=== PATIENT | male | born 1985 | race Caucasian/White ===

== ENCOUNTER 2016-07-15 13:31 | Emergency (ER) | payer MEDICAID ==
[~2016-07-15] VITALS: Wt 88.0 kg
--- NOTE | 2016-07-15 14:35 | EN ---
Date/Time of Note Date/Time of Note DATE: 07/15/16 TIME: 14:34 ER Progress Note This is a 31-year-old male presents to the ER with hearing loss. Patient was seen at [facility] yesterday and was given a referral for ENT for next week, patient however very concerned that he is unable to hear. He has not received any sort of imaging to rule out mastoiditis. Patient will be sent over to the fast track for further testing. LUNA HECTOR Jul 15, 2016 14:35
--- NOTE | 2016-07-15 15:19 | ERA ---
ER Documentation Chief Complaint Date/Time DATE: 07/15/16 TIME: 15:17 Chief Complaint BIALTERAL EAR PRESSURE DIFFICULT TO HEAR. NO HEADACE OR URI SYMPTOMS HPI This is a 31-year-old male presents to the emergency department presenting to the emergency department complaining of bilateral ear pressure any hearing loss for the past 2 weeks. Patient states that he has been seen at [facility] as well and discussed with him to follow-up with an ENT specialist. Patient states that he has been working on following up with an ENT specialist. Patient denies any fever, ear discharge, ear pain, headache or other URI symptoms. ROS All systems reviewed and are negative except as per history of present illness. Medications Home Meds Active Scripts Amoxicillin/Potassium Clav (Amox-Clav 500-125 mg Tablet) 500-125 mg Tab, 1 TAB PO BID for 10 Days, TAB Prov:NERISSA APODACA PA-C 07/15/16 Prednisone* (Prednisone*) 20 Mg Tab, 40 MG PO DAILY for 4 Days, TAB Prov:NERISSA APODACA PA-C 07/15/16 PMhx/Soc History of Surgery: Yes (appendectomy) Hx Respiratory Disorders: Yes (asthma) Hx Alcohol Use: No Hx Substance Use: No Hx Tobacco Use: No Physical Exam Vitals Vital Signs Date Time Temp Pulse Resp B/P Pulse Ox O2 Delivery O2 Flow Rate FiO2 07/15/16 13:42 98.8 82 19 109/72 97 Physical Exam GENERAL: well-developed/well-nourished, in no apparent distress, non-toxic appearing HEAD: NC/AT, no swelling noted in frontal or maxillary areas EARS: bilateral tympanic membrane is intact without erythema or effusion NARES: n patent THROAT: oropharynx non-erythematous EYES: Conjunctiva normal NECK: Supple, no lymphadenopathy PULM: CTA bilaterally, no rales, rhonchi, or wheezing heard CV: Normal S1S2, RRR, good capillary refill GI: Soft, non-distended, normal bowel sounds, non-tender BACK: No midline tenderness, no masses EXT No clubbing, cyanosis, or edema NEURO: Alert and Orientated SKIN: Intact, normal turgor PSYCH: Normal mood and mentation Results 24 hrs Current Medications Medications (Trade) Dose Ordered Sig/Kian Route PRN Reason Start Time Stop Time Status Last Admin Dose Admin Amoxicillin/ Clavulanate Potassium (Augmentin) 500 mg ONCE STAT PO 07/15/16 15:50 07/15/16 15:52 DC Prednisone (Prednisone) 60 mg ONCE STAT PO 07/15/16 15:50 07/15/16 15:52 DC Procedures/MDM This is a 31-year-old male presenting to emergency room with bilateral hearing loss without any pain the past few weeks.Differentials include but not limited to infection, trauma, TMJD, presbycusis, vascular causes vs other. Patient has been seen at different hospital and is working on following up with an ENT specialist. On examination, patient had good cone of light without any bulging tympanic membrane. I have consulted my supervising physician Dr. Osborne regarding this case who suggested to do CT of temporal bones and head. CT of the temporal bones show moderate bilateral otitis media therefore patient will be treated in the ED. In the ED suggested to given Augmentin and 4day prednisone. Patient is hematuria stable for discharge to follow-up with an ENT specialist. Discussed return to the ER for any worsening signs or symptoms. Patient understands and agrees with plan CT head: 1. No acute intracranial hemorrhage, transcortical infarction or mass effect. 2. Mild opacification of bilateral mastoid air cells with associated small air- fluid levels. Bilateral middle ear cavities are opacified. Correlate clinically for possible infection. Please refer to temporal bone CT report of the same day for details. CT temporal: Moderate bilateral otitis media, with fluid opacification of the bilateral middle ear cavities as well as mild to moderate fluid opacification of the bilateral ethmoid air cells. No definite evidence of erosive changes at this time. Departure Diagnosis: Primary Impression: Bilateral otitis media Condition: Stable NERISSA APODACA PA-C Jul 15, 2016 15:19
--- NOTE | 2016-07-15 15:31 | RADRPT ---
PROCEDURE: CT Brain without. CLINICAL INDICATION: Bilateral hearing loss. TECHNIQUE: A CT of the brain was performed on multidetector high-resolution CT scanner utilizing a xial sections from the skull base through the vertex without contrast. The scan was reviewed in sof t tissue brain and high frequency resolution bone algorithm windows. Images were reviewed on a high -resolution PACS workstation. One or more the following does reduction techniques were utilized: Aut omated exposure control, adjustment of the mA/ or kV according to patient's size, or use of iterativ e reconstruction technique. The exam CTDI = 45.01, 44.11 mGy and the DLP = 720.23 mGy-cm. COMPARISON: None available. FINDINGS: The ventricles and sulci are age-appropriate. There is no intracranial hemorrhage, mass effect or mi dline shift. No abnormal intra-axial or extra-axial fluid collections are seen. The martinez/white diaz er differentiation is preserved. No acute skull abnormality is noted. The visualized paranasal sinus es demonstrate mild mucosal thickening mainly in ethmoid air cells. There are mild opacification of bilateral mastoid air cells with associated small air-fluid levels. Bilateral middle ear cavities ar e opacified. Right frontal and occipital scalp nodules are noted measuring up to 1.3 cm which likel y represent sebaceous cysts. IMPRESSION: 1. No acute intracranial hemorrhage, transcortical infarction or mass effect. 2. Mild opacification of bilateral mastoid air cells with associated small air-fluid levels. Bilate ral middle ear cavities are opacified. Correlate clinically for possible infection. Please refer t o temporal bone CT report of the same day for details. RPTAT: HH .Christian Hawkins MD, MD Date Time Electronically viewed and signed by .Christian Hawkins MD, MD on 07/15/2016 15:31 .N/
[2016-07-15] MEDS ORDERED: predniSONE 20 MG TAB PO STA (15:50)
[2016-07-15] MEDS ORDERED: AMOXICILLIN/CLAV 500 MG TAB PO STA (15:50)
[2016-07-15] MEDS ORDERED: AMOX1TAB9 PO (15:54)
[2016-07-15] MEDS ORDERED: PRED20TA PO (15:54)
--- NOTE | 2016-07-15 16:09 | RADRPT ---
PROCEDURE: CT IAC without. CLINICAL INDICATION: Bilateral hearing loss. TECHNIQUE: The study was performed utilizing a multi-slice, multidetector CT scanner. Direct spira l 1 mm axial sections were obtained through the head without the use of intravenous contrast materia l. Coronal and sagittal as well as maximal intensity projection reformations were obtained. The catalina ges were reviewed on a PACS workstation. RADIATION DOSE: CTDIvol: 45.0 mGyDLP: 720.2 mGy-cm COMPARISON: No prior studies are available for comparison. FINDINGS: Right temporal bone: The external auditory canal is normal in appearance. The tympanic membrane is intact. There is complete fluid opacification of the right middle ear cavity, with mild fluid opac ification of the right sided mastoid air cells. The ossicles appear intact. The stapes articulates normally with the oval window. There is normal bone mineral density of the fissula antefenestra. T he inner ear structures are normal. The semicircular canals are covered by bone. The facial nerve describes a normal course. No definite abnormality is seen in the fossa Rosenmuller. The internal acoustic canal is unremarkable. Left temporal bone: The external auditory canal is normal in appearance. The tympanic membrane is intact. There is complete fluid opacification of the left middle ear cavity, with mild to moderate inflammatory changes of the left sided mastoid air cells. The ossicles appear intact. The stapes articulates normally with the oval window. There is normal bone mineral density of the fissula ante fenestra. The inner ear structures are normal. The semicircular canals are covered by bone. The f acial nerve describes a normal course. The mastoid air cells are normally aerated. No definite abn ormalities seen in the fossa Rosenmuller. The internal acoustic canal is unremarkable. Limited visualization of the intracranial contents is unremarkable. IMPRESSION: 1. Moderate bilateral otitis media, with fluid opacification of the bilateral middle ear cavities a s well as mild to moderate fluid opacification of the bilateral ethmoid air cells. No definite evid ence of erosive changes at this time. 2. Anatomy as discussed above. RPTAT: HGAS .Lester Joseph MD, MD Date Time Electronically viewed and signed by .Lester Joseph MD, MD on 07/15/2016 16:08 .S/
[2016-07-15 16:38] VITALS: BP 125/68; PULSE 68; RESP 18
== END 2016-07-15 16:39 | disposition home or self-care (01) ==
LOC: FTE 13:31
DX: H66.93 Otitis media, unspecified, bilateral (principal); J45.909 Unspecified asthma, uncomplicated
CPT/HCPCS: 70450; 70480; J7512; Z7502; Z7610